=== PATIENT | female | born 1970 | race Caucasian/White ===

== ENCOUNTER 2021-02-15 14:54 | Outpatient (CLI) | payer OTHER, SELFPAY ==
--- NOTE | 2021-02-15 15:01 | MM_ITS ---
WS: [id number] BILATERAL DIGITAL SCREENING MAMMOGRAPHY WITH CAD CLINICAL INFORMATION: SCREENING HISTORY: Screening mammogram. No current complaints. COMPARISON: October 13, 2014 TECHNIQUE: Bilateral CC and MLO views. FINDINGS: Scattered fibroglandular densities bilaterally. A few punctate calcifications. No suspicious focal ma ss, asymmetry, calcifications, or architectural distortion. No evidence of malignancy. MM/[id number] IMPRESSION: BI-RADS: 2-Benign FOLLOW UP: 1 Year Follow-up Recommend return to annual screening mammography.
== END 2021-02-15 14:55 | disposition home or self-care (01) ==
LOC: RADSHAW 14:59
PROVIDERS: PCP Physician Assistant; Visit Provider Physician Assistant
DX: Z12.31 Encounter for screening mammogram for malignant neoplasm of breast (principal)
CPT/HCPCS: 77067

== ENCOUNTER 2021-04-18 11:24 | Emergency (ER) | payer OTHER, SELFPAY ==
[2021-04-18 11:46] VITALS: BP 154/84; PULSE 77; RESP 19; TEMP 36.8; O2SAT 99; BMI 38.0
--- NOTE | 2021-04-18 11:52 | US_ITS ---
WS: [id number] Gallbladder ultrasound. HISTORY: Evaluate for cholecystitis. COMPARISON: 04/06/2021. Patient has known cholelithiasis. Gallbladder is normally distended. Numerous stones are present in t he lumen. No pericholecystic fluid. Gallbladder wall is diffusely thickened at 3 mm. Common bile duct is normal at 0.4 mm. Normal flow in the portal vein. US/US gall bladder [id number] IMPRESSION: 1. Cholelithiasis with thickened wall. No hydrops. 2. No pericholecystic fluid. 3. Normal bowel duct.
[2021-04-18 12:05] VITALS: BP 159/96; PULSE 79; RESP 18; O2SAT 98
--- NOTE | 2021-04-18 12:31 | ED_ITS ---
HPI - General Adult General: Chief complaint: Abdominal Pain Stated complaint: RUQ ABD PAIN Time Seen by Provider: 04/18/21 11:52 History of Present Illness: HPI narrative: Patient is a 50-year-old female with a history of gallbladder stones who is followed by Dr. Omalley presents the emergency room with acute worsening RUQ pain since 130 this morning. No vomiting fever or chills. Last p.o. intake was 6:30 PM. Pain is colicky and persistent up until 50 minutes prior to arrival. Patient denies any associated chest pain, shortness breath, palpitation, lightheadedness, other abdominal complaints or complaints at this time. Onset: 1:30 am Duration: 10 hrs ago Location:home Severity:moderate Review of Systems Narrative: Constitutional: No fever, no chills. HEENT: No vision changes CV: No chest pain, no palpitations PULM: no cough, no dyspnea. GI: +RUQ abdominal pain, +N/-V/-D. : No dysuria MSKEL: No muscle pain SKIN: No new rashes, no lesions. NEURO: No headache, no focal weakness. HEME: No visible bruises PSYCH: Normal mood Physical Exam Narrative: EXAM NARRATIVE: Head: Atraumatic Eyes: PERRL, conjunctiva without injection ENT: Mucous membrane moist NECK: Supple, ROM intact LUNGS: LCTAB, no crackles/rhonchi CV: RRR ABDOMEN: Soft, +mild RUQ ttp. NO guarding rebound, guarding, rigidity. No CVA tenderness to percussion. +Jensen/Neg McBurney's point tenderness, no suprabupic tenderness to palpation. EXTREMITY: Normal ROM SKIN: No rash or erythema NEURO: Awake and alert, no focal motor deficits PSYCH: Normal mood and affect Course Vital Signs: Vital signs: Vital Signs Temperature 98.2 F 04/18/21 11:46 Pulse Rate 72 04/18/21 13:06 Respiratory Rate 18 04/18/21 13:06 Blood Pressure 159/96 04/18/21 12:05 Pulse Oximetry 98 04/18/21 13:06 MDM - General Adult MDM Narrative: Medical decision making narrative: 50-year-old female presents emergency room with complaints of right upper quadrant abdominal pain. Patient has a diagnosis of kidney stones due for surgery on 04/22/[address] Hunt. On exam, patient has mild tenderness palpation. Vitals within normal limit. Patient is currently pain-free. Work-up: CBC, CMP, lipase, ultrasound gallbladder Intervention: Observation White count within normal limit. Ultrasound did not show any signs of cholecystitis. Patient is found to have a thickened gallbladder with gallstones. Patient is present time is currently pain-free. Have discussed case with Dr. Hunt who agrees with outpatient follow up on Saturday or Saturday. Patient agrees with plan at this time. I do not suspect any acute biliary infection at this time. Disposition: Discharge. Patient counseled regarding diagnostic impression, treatment plan. Patient given ED strict return precautions to return for continuation, worsening, or development of new symptoms. Instructed to f/u w/ general surgeon Dr. Hunt regarding symptoms today. Patient verbalized understanding. Lab Data: Labs: Lab Results 04/18/21 04/18/21 12:30 12:30 WBC 6.3 10^3/uL 10^3/ uL (4.0-10.0) RBC 4.74 10^6/uL 10^6 /uL (4.1-5.3) Hgb 13.7 g/dL g/dL (11.5-15.3) Hct 42.5 % % (37.0-47.0) MCV 89.7 fl fl (81-99) MCH 28.9 pg pg (28.0-34.0) MCHC 32.2 g/dL g/dL (30.0-36.0) RDW 12.0 % L % (12.1-15.1) Plt Count 217 10^3/cmm 10^3 /cmm (130-400) MPV 10.6 fL H fL (7.4-10.4) Neut % (Auto) 75.4 % % Lymph % (Auto) 15.7 % % Stephens % (Auto) 7.9 % % Eos % (Auto) 0.5 % % Baso % (Auto) 0.3 % % Neut # (Auto) 4.75 10^3/uL 10^3 /uL (1.8-7.7) Lymph # (Auto) 1.0 10^3/uL 10^3/ uL (0.8-4.8) Stephens # (Auto) 0.5 10^3/uL 10^3/ uL (0.2-0.9) Eos # (Auto) 0.0 10^3/uL 10^3/ uL (0.0-0.8) Baso # (Auto) 0.0 10^3/uL 10^3/ uL (0.0-0.1) Nucleated RBC % (a uto) 0 % % Nucleated RBCs # 0.0 /100WBC /100W BC Sodium Cancelled Potassium Cancelled Chloride Cancelled Carbon Dioxide Cancelled Anion Gap Cancelled BUN Cancelled Creatinine Cancelled GFR Calculation Cancelled Glucose Cancelled Calculated Osmolal ity Cancelled Calcium Cancelled Total Bilirubin Cancelled AST Cancelled ALT Cancelled Alkaline Phosphata se Cancelled Total Protein Cancelled Albumin Cancelled Globulin Cancelled Lipase Cancelled Imaging Data^: Other Imaging: Radiologist's impression: [address] [id number] ReportSigned Patient: Pamela Johnson #: [id number]: [id number]#:[id number]/Sex: 50 / FADM Date: 04/18/21Loc: ERRoom/Bed:Attending Dr: Ordering Provider/Ordering MD: Snehal Louis MD Date of Service: 04/18/21 Procedure(s): US gall bladder [id number] Accession Number(s): [id number] Report Number: [id number] WS: [id number] Gallbladder ultrasound. HISTORY: Evaluate for cholecystitis. COMPARISON: 04/06/2021. Patient has known cholelithiasis. Gallbladder is normally distended. Numerous stones are present in the lumen. No pericholecystic fluid. Gallbladder wall is diffusely thickened at 3 mm. Common bile duct is normal at 0.4 mm. Normal flow in the portal vein. US/US gall bladder [id number] IMPRESSION: 1. Cholelithiasis with thickened wall. No hydrops. 2. No pericholecystic fluid. 3. Normal bowel duct. Dictated By:Krissy Hernandez DOSigned By:Krissy Hernandez DOSigned Date/Time:04/18/21 1248DD/ 1246 Discharge Plan Discharge Patient Disposition: Home Clinical Impression: Biliary colic Condition: Stable Discharge Orders: Discharge ED (Routine); Ordered 04/18/21 Ordered By: Snehal Louis Referrals: Sanjuana Reddy PA [Primary Care Provider] - Discharge Diet: Advance as tolerated Discharge Activity: Resume usual activity Patient Instructions: Gallstones (ED), Abdominal Pain (ED) Activity Restrictions/Additional Instructions: Come back to the emergency room you have any fever or chills, worsening pain, difficulty eating or drinking, or any new or concerning complaints. Please follow-up with Dr. Hunt for your scheduled outpatient appointment on Saturday or Saturday. Coding Level of Care Code ED Registered Vascular Technologist (Rvt) for Mary Jo Gomez
[2021-04-18 12:41] LABS: Basophils % 0.3 %; Eosinophils % 0.5 %; Hematocrit 42.5 % (37.0-47.0); Hemoglobin 13.7 g/dL (11.5-15.3); Lymphocytes % 15.7 %; Mean Corpuscular HGB Conc 32.2 g/dL (30.0-36.0); Mean Corpuscular Hemoglobin 28.9 pg (28.0-34.0); Mean Corpuscular Volume 89.7 fl (81-99); Mean Platelet Volume 10.6 fL (7.4-10.4); Monocytes # 0.5 10^3/uL (0.2-0.9); Monocytes % 7.9 %; Neutrophils # 4.75 10^3/uL (1.8-7.7); Neutrophils % 75.4 %; Nucleated Red Blood Cells % 0 %; Platelet Count 217 10^3/cmm (130-400); Red Blood Count 4.74 10^6/uL (4.1-5.3); White Blood Count 6.3 10^3/uL (4.0-10.0)
[2021-04-18 13:06] VITALS: PULSE 72; RESP 18; O2SAT 98
== END 2021-04-18 13:02 | disposition home or self-care (01) ==
PROVIDERS: Emergency Provider Emergency Medicine; PCP Physician Assistant
DX: K80.50 Calculus of bile duct without cholangitis or cholecystitis without obstruction (principal); R10.11 Right upper quadrant pain; N20.0 Calculus of kidney
CPT/HCPCS: 76705; 85025; 99282

== ENCOUNTER 2022-12-13 15:08 | Outpatient (CLI) | payer OTHER, SELFPAY ==
--- NOTE | 2022-12-13 | MM_ITS ---
WS: [id number] BILATERAL 3D TOMOSYNTHESIS DIGITAL SCREENING MAMMOGRAPHY WITH CAD CLINICAL INFORMATION: SCREENING HISTORY: Screening mammogram. No current complaints. COMPARISON: 2020 TECHNIQUE: Bilateral CC and MLO views. FINDINGS: Scattered fibroglandular densities bilaterally. No suspicious focal mass, asymmetry, calcifications, or architectural distortion. No evidence of malignancy. Vascular calcification. A few incidental punc srivastava and clustered calcifications. MM/[place] [id number] IMPRESSION: BI-RADS: 2-Benign FOLLOW UP: 1 Year Follow-up Recommend return to annual screening mammography.
== END 2022-12-13 15:09 | disposition home or self-care (01) ==
LOC: RAD 15:09
PROVIDERS: PCP Physician Assistant; Visit Provider Physician Assistant
DX: Z12.31 Encounter for screening mammogram for malignant neoplasm of breast (principal)
CPT/HCPCS: 77063; 77067

== ENCOUNTER 2024-01-09 08:16 | Outpatient (RCR) | payer OTHER, SELFPAY | END 2024-01-22 23:59 | disposition home or self-care (01) | LOC: SPT 08:16 | PROVIDERS: PCP Physician Assistant; Visit Provider Physician Assistant | DX: N39.3 Stress incontinence (female) (male) (principal) | CPT/HCPCS: 97161; 97530 ==

== ENCOUNTER 2024-01-09 11:55 | Outpatient (CLI) | payer OTHER, SELFPAY ==
--- NOTE | 2024-01-09 12:00 | MM_ITS ---
WS: [id number] Bilateral screening 3D tomosynthesis digital mammogram, 01/09/2024 Clinical Data: SCREENING Comparison: 12/13/2022, 02/15/2021, 10/13/2014. Findings: The breast parenchymal pattern shows fibroglandular tissue. No spiculated masses or clustered calcifi cations are seen. There are no secondary signs of carcinoma. MM/[place] [id number] Impression: 1. Negative bilateral mammogram unchanged. 2. Recommend annual screening mammograms. BIRADS: 1-Negative FOLLOW UP: 1 Year Follow-up The CAD engineering drawings checker was used.
== END 2024-01-09 11:56 | disposition home or self-care (01) ==
LOC: RAD 11:55
PROVIDERS: PCP Physician Assistant; Visit Provider Physician Assistant
DX: Z12.31 Encounter for screening mammogram for malignant neoplasm of breast (principal); R92.333 Mammographic heterogeneous density, bilateral breasts
CPT/HCPCS: 77063; 77067

== ENCOUNTER → 2024-07-02 14:08 | Outpatient (BNVA) | payer OTHER, SELFPAY | PROVIDERS: PCP Physician Assistant; Visit Provider Nurse Practitioner Family | DX: J02.9 Acute pharyngitis, unspecified (principal); B34.9 Viral infection, unspecified | CPT/HCPCS: 87880 ==